=== PATIENT | female | born 1965 | race Caucasian/White ===

== ENCOUNTER 2019-06-22 22:06 | Emergency (ER) | payer OTHER ==
[~2019-06-22] VITALS: Ht 162.6 cm; Wt 61.2 kg
[2019-06-22 22:22] VITALS: BP 160/71
[2019-06-22] MEDS ORDERED: ZOFRAN ODT4 MG PO (22:28)
== END 2019-06-22 22:36 | disposition home or self-care (01) ==
LOC: M.ERS 22:06
DX: J06.9 Acute upper respiratory infection, unspecified (principal)

== ENCOUNTER 2019-06-28 20:41 | Emergency (ER) | payer OTHER ==
[~2019-06-28] VITALS: Ht 162.6 cm; Wt 61.2 kg
[~2019-06-28 20:41] MED LIST: ZOFRAN ODT4 MG PO
[2019-06-28 21:29] LABS: INFLUENZA A ANTIGEN Negative (Negative); INFLUENZA B ANTIGEN Negative (Negative)
[2019-06-28] MEDS ORDERED: HYDROCODON-ACE1 EAC8 PO (22:32)
[2019-06-28 23:21] VITALS: BP 145/81
== END 2019-06-28 23:21 | disposition home or self-care (01) ==
LOC: M.ERS 20:41
PROVIDERS: Nurse Practitioner Family
DX: R07.89 Other chest pain (principal); Z88.5 Allergy status to narcotic agent

== ENCOUNTER 2019-07-28 09:22 | Emergency (ER) | payer OTHER ==
[~2019-07-28] VITALS: Ht 162.6 cm; Wt 61.2 kg
[~2019-07-28 09:22] MED LIST changes: +HYDROCODON-ACE1 EAC8 PO
[2019-07-28 10:04] LABS: INFLUENZA A ANTIGEN Positive (Negative); INFLUENZA B ANTIGEN Negative (Negative)
[2019-07-28] MEDS ORDERED: ZOFRAN ODT4 MG DISSOLVE (10:08)
[2019-07-28] MEDS ORDERED: TAMIFLU75 MG PO (10:08)
[2019-07-28] MEDS ORDERED: FLEXERIL PO (10:08)
[2019-07-28 10:26] VITALS: BP 120/74
== END 2019-07-28 10:26 | disposition home or self-care (01) ==
LOC: M.ERS 09:22
PROVIDERS: Emergency Medicine Emergency Medical Services
DX: J10.1 Influenza due to other identified influenza virus with other respiratory manifestations (principal); Z90.710 Acquired absence of both cervix and uterus; Z98.890 Other specified postprocedural states; F17.210 Nicotine dependence, cigarettes, uncomplicated; Z88.5 Allergy status to narcotic agent

== ENCOUNTER 2019-08-07 05:38 | Emergency (ER) | payer OTHER ==
[~2019-08-07] VITALS: Ht 162.6 cm; Wt 59.0 kg
[~2019-08-07 05:38] MED LIST changes: +FLEXERIL PO; +TAMIFLU75 MG PO; +ZOFRAN ODT4 MG DISSOLVE
[2019-08-07 06:06] LABS: ABSOLUTE EOSINOPHILS 0.1 thou/uL (0.0-0.7); ABSOLUTE LYMPHOCYTES 2.5 thou/uL (0.8-5.3); ABSOLUTE MONOCYTES 0.5 thou/uL (0.0-1.2); ABSOLUTE NEUTROPHILS 3.6 thou/uL (1.6-8.1); BASOPHILS 0.7 %; EOSINOPHILS 1.1 %; HEMATOCRIT 39.7 % (37.0-47.0); HEMOGLOBIN 13.6 gm/dL (12.0-15.0); LYMPHOCYTES 37.2 %; MCH 30.5 pg (26.0-34.0); MCHC 34.1 g/dL (28.0-37.0); MCV 89.3 fL (80.0-100.0); MPV 7.1 fl. (7.2-11.1); NUCLEATED RBCS 0 /100WBC; PLATELET COUNT* 392 thou/uL (150-400); RBC 4.45 mil/uL (4.20-5.00); WBC 6.6 thou/uL (4.0-11.0)
[2019-08-07 06:10] LABS: CALCIUM 8.7 mg/dL (8.5-10.1); CREATININE 0.7 mg/dL (0.6-1.3); POTASSIUM 3.8 mmol/L (3.5-5.1)
[2019-08-07 06:15] LABS: ALBUMIN 3.5 g/dL (3.4-5.0); TOTAL BILIRUBIN 0.2 mg/dL (<0.1-1.0); TOTAL PROTEIN 7.1 g/dL (6.4-8.2)
[2019-08-07] MEDS ORDERED: ATIVAN0.5 M1 PO (06:39)
[2019-08-07 07:02] VITALS: BP 120/69
== END 2019-08-07 07:05 | disposition home or self-care (01) ==
LOC: M.ERS 05:38
PROVIDERS: Emergency Medicine
DX: R56.9 Unspecified convulsions (principal); F17.210 Nicotine dependence, cigarettes, uncomplicated; Z90.710 Acquired absence of both cervix and uterus; Z88.5 Allergy status to narcotic agent

== ENCOUNTER 2020-01-14 23:03 | Emergency (ER) | payer OTHER ==
[~2020-01-14] VITALS: Ht 162.6 cm; Wt 61.2 kg
[~2020-01-14 23:03] MED LIST changes: +ATIVAN0.5 M1 PO
[2020-01-15 00:45] LABS: ABSOLUTE BASOPHILS 0.1 thou/uL (0.0-0.2); ABSOLUTE EOSINOPHILS 0.1 thou/uL (0.0-0.7); ABSOLUTE LYMPHOCYTES 1.4 thou/uL (0.8-5.3); ABSOLUTE MONOCYTES 0.4 thou/uL (0.0-1.2); ABSOLUTE NEUTROPHILS 3.3 thou/uL (1.6-8.1); HEMATOCRIT 41.6 % (37.0-47.0); HEMOGLOBIN 14.3 gm/dL (12.0-15.0); LYMPHOCYTES 26.3 %; MCH 30.6 pg (26.0-34.0); MCHC 34.4 g/dL (28.0-37.0); MONOCYTES 7.6 %; MPV 7.5 fl. (7.2-11.1); NUCLEATED RBCS 0 /100WBC; PLATELET COUNT* 310 thou/uL (150-400); POLYS 64.1 %; RBC 4.68 mil/uL (4.20-5.00); RDW-CV 14.5 % (10.5-14.5); WBC 5.2 thou/uL (4.0-11.0)
[2020-01-15] MEDS ORDERED: ATIVAN0.5 M1 PO ×2 (01:05→01:34)
[2020-01-15 01:10] LABS: CALCIUM 8.4 mg/dL (8.5-10.1); CREATININE 0.7 mg/dL (0.6-1.3); POTASSIUM 4.3 mmol/L (3.5-5.1)
[2020-01-15 01:15] LABS: ALBUMIN 3.4 g/dL (3.4-5.0); TOTAL BILIRUBIN 0.3 mg/dL (<0.1-1.0); TOTAL PROTEIN 6.5 g/dL (6.4-8.2)
[2020-01-15 02:04] VITALS: BP 111/69
== END 2020-01-15 02:06 | disposition home or self-care (01) ==
LOC: M.ERS 23:03
PROVIDERS: Emergency Medicine
DX: R56.9 Unspecified convulsions (principal); F17.210 Nicotine dependence, cigarettes, uncomplicated; Z90.710 Acquired absence of both cervix and uterus; Z88.6 Allergy status to analgesic agent

== ENCOUNTER 2020-10-28 02:24 | Emergency (ER) | payer OTHER ==
[~2020-10-28] VITALS: Ht 162.6 cm; Wt 59.0 kg
[2020-10-28 03:10] VITALS: BP 121/72
== END 2020-10-28 03:11 | disposition home or self-care (01) ==
LOC: M.ERS 02:24
DX: R56.9 Unspecified convulsions (principal); F17.210 Nicotine dependence, cigarettes, uncomplicated; Z90.710 Acquired absence of both cervix and uterus; Z88.5 Allergy status to narcotic agent

== ENCOUNTER 2021-06-17 09:40 | Emergency (ER) | payer OTHER ==
[~2021-06-17] VITALS: Ht 162.6 cm; Wt 56.7 kg
[2021-06-17 11:06] VITALS: BP 135/88
== END 2021-06-17 11:06 | disposition home or self-care (01) ==
LOC: M.ERS 09:40
DX: R05.9 Cough, unspecified (principal); Z20.822 Contact with and (suspected) exposure to COVID-19; F17.210 Nicotine dependence, cigarettes, uncomplicated; Z90.710 Acquired absence of both cervix and uterus; Z88.5 Allergy status to narcotic agent; Z88.6 Allergy status to analgesic agent

== ENCOUNTER 2021-07-03 11:01 | Emergency (ER) | payer OTHER ==
[~2021-07-03] VITALS: Ht 162.6 cm; Wt 56.7 kg
[2021-07-03 12:00] LABS: INFLUENZA A ANTIGEN Negative (Negative); INFLUENZA B ANTIGEN Negative (Negative)
[2021-07-03 12:20] VITALS: BP 128/77
== END 2021-07-03 12:21 | disposition home or self-care (01) ==
LOC: M.ERS 11:01
PROVIDERS: Emergency Medicine
DX: U07.1 COVID-19 (principal); F17.210 Nicotine dependence, cigarettes, uncomplicated; Z90.710 Acquired absence of both cervix and uterus; Z88.5 Allergy status to narcotic agent